=== PATIENT | male | born 1990 | race Caucasian/White ===

== ENCOUNTER 2019-05-05 18:14 | Day surgery (SDC) | payer OTHER ==
[~2019-05-05] VITALS: Ht 177.8 cm; Wt 74.7 kg
[2019-05-05] VITALS (7 sets, daily range): BP systolic 104–128; BP diastolic 66–77; PULSE 49–70; TEMP 98.4
[2019-05-05 19:13] LABS: BASO % 0.2 % (0.0-2.0); EOS % 0.1 % (0-4.0); GRAN # 16.8 (1.4-6.5); HEMATOCRIT 46.6 % (42.0-52.0); HEMOGLOBIN 16.2 g/dl (13.5-18.0); LYMPH # 1.4 (1.2-3.4); LYMPH % 7.2 % (20.0-51.0); MEAN CELL VOLUME 84 fl (80.0-100.0); MEAN CORPUSCULAR HEMOGLOBIN 29 pg (27.0-31.0); MEAN CORPUSCULAR HGB CONC 35 g/dl (33.0-37.0); MEAN PLATELET VOLUME 10.3 fl (7.4-10.4); MONO # 0.8 (0.1-0.6); PLATELET COUNT 306 K/mm3 (130-400); RED BLOOD COUNT 5.58 M/mm3 (4.20-5.60); REDCELL DISTRIBUTION WIDTH-CV 12.3 % (11.5-14.5)
[2019-05-05 19:22] LABS: ALBUMIN 5.3 gm/dL (3.5-5.0); BILIRUBIN,TOTAL 1.1 mg/dL (0.0-1.0); C-REACTIVE PROTEIN 0.8 mg/dL (0.0-0.9); CALCIUM 9.8 mg/dL (8.4-10.2); CREATININE, serum 0.9 (0.66-1.25); POTASSIUM 3.9 mmol/L (3.4-5.0); TOTAL PROTEIN 8.4 gm/dL (6.4-8.2)
[2019-05-05] MEDS ORDERED: PERCOCET 325 MG1 TA2 PO ×2 (21:55→21:58)
[2019-05-05] MEDS ORDERED: MOTRIN 600600 MG/TAB PO ×2 (21:55→21:58)
[2019-05-05] MEDS ORDERED: COLACE 100100 MG/CAP PO ×2 (21:55→21:58)
--- NOTE | 2019-05-05 23:03 | NUR ---
Pt. arrived to the floorat 2224 via pacu stretcher. Pt. is A&OX3, assessment complete. IV to rt. ac patent, IV fluids infusing per orders. Pt. vitals post-op stable. Pt. denies pain or other needs at this time. Call light within reach.
[2019-05-06 00:18] VITALS: BP 116/59; PULSE 49; TEMP 98.4
[2019-05-06 01:18] VITALS: BP 105/62; PULSE 49
[2019-05-06 04:00] VITALS: BP 127/80; PULSE 65; TEMP 98.4
[2019-05-06 08:46] VITALS: BP 123/69; PULSE 76; TEMP 98.6
--- NOTE | 2019-05-06 09:30 | NUR ---
Patient alert and oriented, answers questions appropriately. See assessment. Abdomen soft, non tender, non distended. Bowel sounds active x4 quads. +Flatus. Lap sites with edges well approximated, no redness or drainage noted. No c/o abdominal pain or discomfort.
--- NOTE | 2019-05-06 10:01 | NUR ---
HILARIO met with the pt and his Mariah to discuss a discharge plan. The pt lives in [place] with Mariah. The pt does not have DME and reports independence with ADLs. The pt's PCP is on [address] and pt receives medications from [facility] with no difficulties. The pt does not have advanced directives in the EMR and was no interested in a DPOA-HC form. The pt plans to return home upon discharge with Mariah providing transportation. There are no additional needs at this time.
--- NOTE | 2019-05-06 11:35 | NUR ---
Discharge instructions reviewed with patient and spouse, verbalized understanding. Discharged ambulatory to auto/home with spouse at 1136.
== END 2019-05-06 11:36 | disposition home or self-care (01) ==
LOC: COL.ER 18:14 → SURG 19:41 → SDCO 19:41 → SURG 19:41 → SDCO 05-06 11:36 → SURG 05-06 11:36
PROVIDERS: Emergency Medicine
DX: K35.80 Unspecified acute appendicitis (principal); F17.290 Nicotine dependence, other tobacco product, uncomplicated
CPT/HCPCS: J1335; J1885; J2405; J2704; J3010; J7030; Q9967